=== PATIENT | male | born 1960 | race Caucasian/White ===

== ENCOUNTER 2022-12-28 02:46 | Emergency (ER) | payer SELFPAY ==
[2022-12-28 02:58] VITALS: BMI 28.9
[2022-12-28] MEDS ORDERED: FAMOTIDINE 20 MG/50 ML IVPB 20 MG/50 ML MG IVPB ONE ×2 (03:21→03:37)
[2022-12-28] MEDS ORDERED: ONDANSETRON 4 MG/2 ML VIAL IVPUSH ONE (03:21)
[2022-12-28] MEDS ORDERED: morphine CARPU-JECT 4 MG/1 ML DISP.SYRIN IVPUSH ONE (03:21)
[2022-12-28] MEDS ORDERED: SODIUM CHLORIDE 0.9% 500 ML INFUS.BAG IV ONE (03:21)
[2022-12-28] MEDS ORDERED: ONDANSETRON 4 MG/2 ML VIAL ONE (03:37)
[2022-12-28] MEDS ORDERED: morphine SULFATE 4 MG/ML VIAL ONE (03:37)
[2022-12-28 04:17] LABS: BASO % 0.6 % (0-2.0); EOS % 1.1 % (0-4.5); HEMATOCRIT 38.6 % (35.4-49); HEMOGLOBIN 13.1 GM/dL (11.7-16.9); LYMPH % 16.6 % (8-40); MCH 30.1 pg (25.7-33.7); MCHC 33.9 g/dl (32.0-35.9); MEAN CELL VOLUME 88.9 fl (80-96); MEAN PLT VOLUME 7.4 fl (7.5-11.1); MONO % 6.4 % (3.8-10.2); NEUT % 75.3 % (42.8-82.8); PLATELET COUNT 237 10^3/uL (134-434); RBC 4.35 M/mm3 (4.00-5.60); RDW 14.2 % (11.9-15.9); WHITE BLOOD COUNT 13.7 K/mm3 (4.0-10.0)
[2022-12-28 04:19] LABS: INR 0.96 (0.83-1.09); PROTHROMBIN TIME (PATIENT) 11.1 SEC (9.7-13.0)
[2022-12-28 04:38] LABS: ALBUMIN 3.6 g/dl (3.4-5.0); CALCIUM 8.2 mg/dL (8.5-10.1)
[2022-12-28 04:41] LABS: CREATININE 0.9 mg/dL (0.55-1.3)
[2022-12-28 04:43] LABS: BILIRUBIN,TOTAL 0.5 mg/dL (0.2-1); TOT PROT 7.2 g/dl (6.4-8.2)
[2022-12-28 08:51] LABS: PH,URINE 7.5 (5.0-8.0); URINE APPEARANCE CLEAR; URINE BILIRUBIN NEGATIVE (NEGATIVE); URINE COLOR YELLOW; URINE GLUCOSE (UA) NEGATIVE (NEGATIVE); URINE KETONE NEGATIVE (NEGATIVE); URINE LEUK ESTERASE NEGATIVE (NEGATIVE); URINE NITRITE NEGATIVE (NEGATIVE); URINE PROTEIN NEGATIVE (NEGATIVE); URINE UROBILINOGEN 0.2 mg/dL (0.2-1.0)
[2022-12-28 09:07] VITALS: BP 134/67; PULSE 75; RESP 18; TEMP 97.9
== END 2022-12-28 10:15 | disposition home or self-care (01) ==
LOC: JER 02:46
PROC: 3E033GC Introduction of Other Therapeutic Substance into Peripheral Vein, Percutaneous Approach (ICD-10-PCS; principal; 2022-12-28)
DX: K80.20 Calculus of gallbladder without cholecystitis without obstruction (principal); R10.84 Generalized abdominal pain; R93.5 Abnormal findings on diagnostic imaging of other abdominal regions, including retroperitoneum; Z20.822 Contact with and (suspected) exposure to COVID-19
CPT/HCPCS: 36415; 71045-TC-FY; 74177-TC; 76705-TC; 80053; 81003; 83605; 83690; 83735; 84484; 85025; 85610; 85730; 86850; 86900; 86901; 87077; 87086; 93005; 93010; 99285-25; C9803-CS; Q9967; U0003; U0005

== ENCOUNTER 2023-12-29 13:20 | Inpatient (IN) | payer OTHER ==
[2023-12-29] MEDS ORDERED: ACETAMINOPHEN INJECTION 100 ML IVPB ONE ×2 (14:40→14:41)
[2023-12-29] MEDS: ACETAMINOPHEN 1000 MG/100 ML BAG IVPB ONE (14:44)
[2023-12-29 14:49] LABS: BASO % 0.6 % (0-2.0); EOS % 0.3 % (0-4.5); HEMATOCRIT 40.7 % (35.4-49); HEMOGLOBIN 13.5 GM/dL (11.7-16.9); LYMPH % 21.3 % (8-40); MCH 30.1 pg (25.7-33.7); MCHC 33.2 g/dl (32.0-35.9); MEAN CELL VOLUME 90.8 fl (80-96); MEAN PLT VOLUME 7.3 fl (7.5-11.1); MONO % 10.9 % (3.8-10.2); NEUT % 66.9 % (42.8-82.8); PLATELET COUNT 247 10^3/uL (134-434); RBC 4.48 M/mm3 (4.00-5.60); RDW 14.4 % (11.9-15.9); WHITE BLOOD COUNT 11.5 K/mm3 (4.0-10.0)
[2023-12-29 14:51] LABS: URINE APPEARANCE CLEAR; URINE BILIRUBIN NEGATIVE (NEGATIVE); URINE COLOR YELLOW; URINE GLUCOSE (UA) NEGATIVE (NEGATIVE); URINE KETONE 1+ (NEGATIVE); URINE LEUK ESTERASE NEGATIVE (NEGATIVE); URINE NITRITE NEGATIVE (NEGATIVE); URINE PROTEIN NEGATIVE (NEGATIVE)
[2023-12-29 15:18] LABS: POTASSIUM 3.6 mmol/L (3.5-5.1)
[2023-12-29 15:20] LABS: CALCIUM 8.5 mg/dL (8.5-10.1)
[2023-12-29 15:21] LABS: ALBUMIN 3.6 g/dl (3.4-5.0); BLOOD UREA NITROGEN 10.7 mg/dL (7-18)
[2023-12-29 15:24] LABS: CREATININE 0.7 mg/dL (0.55-1.3)
[2023-12-29 15:25] LABS: BILIRUBIN,TOTAL 0.7 mg/dL (0.2-1); TOT PROT 7.5 g/dl (6.4-8.2)
[2023-12-29] MEDS ORDERED: PIPERACILLIN/TAZOB 4.5 GM 4.5 GM/100 ML BAG IVPB ONE (18:39)
[2023-12-29] MEDS: PIPERACILLIN/TAZOB 4.5 GM 4.5 GM in DEXTROSE 5%-WATER 100 ML IVPB ONE (18:44)
[2023-12-29] MEDS ORDERED: ONDANSETRON 4 MG/2 ML VIAL ONE (20:48)
[2023-12-29] MEDS: ONDANSETRON 4 MG/2 ML VIAL IVPUSH SCH (20:51)
[2023-12-29] MEDS: SODIUM CHLORIDE 1,000 ML IV SCH (20:51)
[2023-12-29] MEDS: ACETAMINOPHEN 1000 MG/100 ML BAG IVPB PRN (22:27)
[2023-12-29 23:02] VITALS: BMI 27.8
[2023-12-30] MEDS: PIPERACILLIN/TAZOB 3.375 GM 3.375 GM in DEXTROSE 5%-WATER - 50 ML IVPB SCH (01:24)
[2023-12-30] MEDS ORDERED: PIPERACILLIN/TAZOB 3.375 GM 3.375 GM in DEXTROSE 5%-WATER - 50 ML IVPB SCH (02:00)
[2023-12-30 07:58] LABS: BASO % 0.7 % (0-2.0); EOS % 2.4 % (0-4.5); HEMATOCRIT 36.3 % (35.4-49); HEMOGLOBIN 12.4 GM/dL (11.7-16.9); LYMPH % 17.4 % (8-40); MCH 30.9 pg (25.7-33.7); MCHC 34.3 g/dl (32.0-35.9); MEAN CELL VOLUME 90.2 fl (80-96); MEAN PLT VOLUME 7.7 fl (7.5-11.1); MONO % 12.6 % (3.8-10.2); NEUT % 66.9 % (42.8-82.8); PLATELET COUNT 219 10^3/uL (134-434); RBC 4.03 M/mm3 (4.00-5.60); RDW 14.7 % (11.9-15.9); WHITE BLOOD COUNT 9.2 K/mm3 (4.0-10.0)
[2023-12-30 08:21] LABS: POTASSIUM 3.5 mmol/L (3.5-5.1)
[2023-12-30 08:40] LABS: BLOOD UREA NITROGEN 10.4 mg/dL (7-18); MAGNESIUM 2.2 mg/dL (1.8-2.4)
[2023-12-30 08:41] LABS: INR 1.19 (0.83-1.09); PROTHROMBIN TIME (PATIENT) 13.8 SEC (9.7-13.0)
[2023-12-30 08:44] LABS: CREATININE 0.6 mg/dL (0.55-1.3); PHOSPHOROUS 2.5 mg/dL (2.5-4.9)
[2023-12-30 08:45] LABS: BILIRUBIN,TOTAL 1.1 mg/dL (0.2-1); TOT PROT 6.3 g/dl (6.4-8.2)
[2023-12-30 08:47] LABS: ALBUMIN 2.8 g/dl (3.4-5.0)
[2023-12-30] MEDS ORDERED: ACETAMINOPHEN 1000 MG/100 ML BAG IVPB PRN (15:07)
[2023-12-31 09:06] LABS: BASO % 0.5 % (0-2.0); EOS % 2.1 % (0-4.5); HEMATOCRIT 36.5 % (35.4-49); HEMOGLOBIN 12.5 GM/dL (11.7-16.9); LYMPH % 19.2 % (8-40); MCH 30.8 pg (25.7-33.7); MCHC 34.3 g/dl (32.0-35.9); MEAN CELL VOLUME 89.9 fl (80-96); MEAN PLT VOLUME 7.8 fl (7.5-11.1); MONO % 10.1 % (3.8-10.2); NEUT % 68.1 % (42.8-82.8); PLATELET COUNT 238 10^3/uL (134-434); RBC 4.06 M/mm3 (4.00-5.60); RDW 14.1 % (11.9-15.9); WHITE BLOOD COUNT 10.3 K/mm3 (4.0-10.0)
[2023-12-31 09:27] LABS: POTASSIUM 3.2 mmol/L (3.5-5.1)
[2023-12-31] MEDS ORDERED: PROMETHAZINE HCL 25 MG/1 ML VIAL IVPB PRN (09:27)
[2023-12-31] MEDS ORDERED: ONDANSETRON 4 MG/2 ML VIAL IVPUSH PRN ×2 (09:27→15:18)
[2023-12-31 09:28] LABS: BLOOD UREA NITROGEN 5.8 mg/dL (7-18); CALCIUM 7.5 mg/dL (8.5-10.1)
[2023-12-31] MEDS ORDERED: LACTATED RINGERS SOLUTION 1,000 ML IV SCH ×2 (09:30→15:30)
[2023-12-31 09:32] LABS: CREATININE 0.6 mg/dL (0.55-1.3)
[2023-12-31] MEDS: ACETAMINOPHEN 1000 MG/100 ML BAG IVPB PRN (11:45)
[2023-12-31] MEDS: KCL 10 MEQ IVPB 10 MEQ/100 ML INFUS.BAG IVPB SCH ×2 (11:47→21:10)
[2023-12-31] MEDS ORDERED: FENTANYL CITRATE/PF 50 MCG/ML VIAL ONE ×4 (12:38→16:17)
[2023-12-31] MEDS ORDERED: ROCURONIUM BROMIDE 50 MG/5 ML SYRINGE ONE ×2 (12:39→13:52)
[2023-12-31] MEDS ORDERED: MIDAZOLAM HCL 2 MG/2 ML SINGLE DOSE VIAL ONE (12:39)
[2023-12-31] MEDS ORDERED: PROPOFOL 20 ML ONE (12:39)
[2023-12-31] MEDS ORDERED: SUCCINYLCHOLINE CHLORIDE 200 MG/10 ML SYRINGE ONE (12:39)
[2023-12-31] MEDS: cefOXitin SODIUM 1 GM VIAL (RESTRICTED TO ID) IVPB ONE ×2 (12:42→13:05)
[2023-12-31] MEDS ORDERED: cefOXitin SODIUM 2 GM VIAL (RESTRICTED TO ID) IVPB ONE (12:43)
[2023-12-31] MEDS ORDERED: BUPIVACAINE HCL/PF 0.25% (2.5MG/ML) 10 ML VIAL ONE (12:43)
[2023-12-31] MEDS: BUPIVACAINE HCL/PF 0.25% (2.5MG/ML) 10 ML VIAL IJ ONE ×2 (13:20)
[2023-12-31] MEDS ORDERED: NEOSTIGMINE METHYLSULFATE 0.5 MG/1 ML - 10 ML MDV ONE (14:42)
[2023-12-31] MEDS: LACTATED RINGERS SOLUTION 1,000 ML IV SCH (21:11)
[2023-12-31] MEDS ORDERED: IBUPROFEN 400 MG TABLET (FP) PO ONE (21:39)
[2024-01-01] MEDS: ACETAMINOPHEN 1000 MG/100 ML BAG IVPB PRN ×2 (01:02→10:21)
[2024-01-01 07:55] LABS: BASO % 0.5 % (0-2.0); HEMATOCRIT 32.4 % (35.4-49); HEMOGLOBIN 11.2 GM/dL (11.7-16.9); LYMPH % 19.2 % (8-40); MCH 30.9 pg (25.7-33.7); MCHC 34.6 g/dl (32.0-35.9); MEAN CELL VOLUME 89.3 fl (80-96); MEAN PLT VOLUME 7.3 fl (7.5-11.1); MONO % 12.7 % (3.8-10.2); NEUT % 66.6 % (42.8-82.8); PLATELET COUNT 225 10^3/uL (134-434); RBC 3.62 M/mm3 (4.00-5.60); RDW 14.3 % (11.9-15.9); WHITE BLOOD COUNT 8.3 K/mm3 (4.0-10.0)
[2024-01-01 08:06] LABS: BLOOD UREA NITROGEN 6.5 mg/dL (7-18); CALCIUM 7.8 mg/dL (8.5-10.1)
[2024-01-01 08:07] LABS: ALBUMIN 2.3 g/dl (3.4-5.0)
[2024-01-01 08:09] LABS: BILIRUBIN,DIRECT 0.3 mg/dL (0.0-0.2); BILIRUBIN,TOTAL 1.1 mg/dL (0.2-1); CREATININE 0.5 mg/dL (0.55-1.3); TOT PROT 5.5 g/dl (6.4-8.2)
[2024-01-01 08:25] LABS: POTASSIUM 3.4 mmol/L (3.5-5.1)
[2024-01-01] MEDS: POTASSIUM CHLORIDE TABS 20 MEQ TABLET.ER (FP) PO ONE (10:19)
[2024-01-01] MEDS ORDERED: ACETAMINOPHEN 500 MG TABLET (FP) PO PRN (16:51)
[2024-01-02 07:13] VITALS: TEMP 98.4
[2024-01-02 09:23] LABS: HEMATOCRIT 32.6 % (35.4-49); HEMOGLOBIN 11.3 GM/dL (11.7-16.9); MCHC 34.6 g/dl (32.0-35.9); MEAN CELL VOLUME 89.7 fl (80-96); MEAN PLT VOLUME 7.2 fl (7.5-11.1); PLATELET COUNT 236 10^3/uL (134-434); RBC 3.63 M/mm3 (4.00-5.60); RDW 14.3 % (11.9-15.9); WHITE BLOOD COUNT 8.3 K/mm3 (4.0-10.0)
[2024-01-02 09:46] LABS: POTASSIUM 3.8 mmol/L (3.5-5.1)
[2024-01-02 10:22] LABS: CALCIUM 8.2 mg/dL (8.5-10.1)
[2024-01-02 10:23] LABS: ALBUMIN 2.3 g/dl (3.4-5.0); BLOOD UREA NITROGEN 5.5 mg/dL (7-18)
[2024-01-02 10:26] LABS: CREATININE 0.5 mg/dL (0.55-1.3)
[2024-01-02 10:27] LABS: BILIRUBIN,TOTAL 0.6 mg/dL (0.2-1); TOT PROT 5.8 g/dl (6.4-8.2)
[2024-01-02 18:08] VITALS: BP 127/72; PULSE 80; RESP 18
== END 2024-01-02 18:32 | disposition home or self-care (01) | DRG 263 ==
LOC: JER 13:20 → JERBED 18:33 → J7W 21:00
PROVIDERS: ADMIT Internal Medicine; ATTEND Internal Medicine
PROC: 0FT44ZZ Resection of Gallbladder, Percutaneous Endoscopic Approach (ICD-10-PCS; principal; 2023-12-31 12:30)
DX: K80.00 Calculus of gallbladder with acute cholecystitis without obstruction (principal); R11.2 Nausea with vomiting, unspecified; R50.9 Fever, unspecified; R10.13 Epigastric pain; I10 Essential (primary) hypertension; D72.829 Elevated white blood cell count, unspecified; G89.18 Other acute postprocedural pain
CPT/HCPCS: 36415; 74177-TC; 80048; 80053; 80076; 81003; 83690; 83735; 84100; 85025; 85027; 85610; 86850; 86900; 86901; 87086; 88304-TC; 93005; 93010; 94010; 94760; 99285-25; J0131; Q9967

== ENCOUNTER 2024-12-06 09:58 | Emergency (ER) | payer OTHER ==
[2024-12-06 10:05] VITALS: BP 145/57; PULSE 70; RESP 18; TEMP 98; BMI 30.9
[2024-12-06] MEDS ORDERED: ACETAMINOPHEN 500 MG TABLET (FP) ONE (10:36)
[2024-12-06] MEDS ORDERED: KETOROLAC TROMETHAMINE 30 MG/1 ML VIAL ONE (10:36)
[2024-12-06] MEDS ORDERED: LIDOCAINE 4% PATCH TP ONE (10:36)
[2024-12-06] MEDS: LIDOCAINE 4% PATCH TP ONE (10:43)
[2024-12-06] MEDS: KETOROLAC TROMETHAMINE 30 MG/1 ML VIAL IM ONE (10:43)
[2024-12-06] MEDS: ACETAMINOPHEN 500 MG TABLET (FP) PO ONE (10:44)
[2024-12-06 10:58] LABS: EPI CELLS 8 /uL (0-25.1); HYALINE CASTS 2 /uL (0-3.1); URINE APPEARANCE CLEAR; URINE BACTERIA 4 /uL (0-1359); URINE BILIRUBIN NEGATIVE (NEGATIVE); URINE COLOR YELLOW; URINE GLUCOSE (UA) NEGATIVE (NEGATIVE); URINE KETONE TRACE (NEGATIVE); URINE LEUK ESTERASE NEGATIVE (NEGATIVE); URINE NITRITE NEGATIVE (NEGATIVE); URINE PROTEIN 1+ (NEGATIVE); URINE RBC 36 /uL (0-23.9); URINE UROBILINOGEN 0.2 mg/dL (0.2-1.0); URINE WBC 11 /uL (0-25.8)
[2024-12-06] MEDS ORDERED: LIDOCAINE PATCH REMOVAL MC SCH (22:00)
== END 2024-12-06 11:12 | disposition home or self-care (01) ==
LOC: JER 09:58
PROC: 3E0233Z Introduction of Anti-inflammatory into Muscle, Percutaneous Approach (ICD-10-PCS; principal; 2024-12-06)
DX: M54.50 Low back pain, unspecified (principal); R30.0 Dysuria; X50.1XXA Overexertion from prolonged static or awkward postures, initial encounter
CPT/HCPCS: 81003; 87086; 99284-25